=== PATIENT | male | born 1975 | race African-American/Black ===

== ENCOUNTER 2019-02-04 16:10 | Emergency (ER) | payer SELFPAY ==
[~2019-02-04] VITALS: Ht 185.4 cm; Wt 81.8 kg
[2019-02-04] MEDS ORDERED: CYCLOBENZAPRINE HCL 10 MG TABLET PO ONE (18:15)
[2019-02-04] MEDS ORDERED: KETOROLAC TROMETHAMINE 60 MG/2 ML VIAL IM ONE (18:15)
[2019-02-04] MEDS ORDERED: LIDOCAINE 5% TRANSDERMAL PATCH TD ONE (18:15)
[2019-02-04 19:14] VITALS: BP 110/77
== END 2019-02-04 19:27 | disposition home or self-care (01) ==
LOC: EMS 16:13
DX: M54.5 Low back pain (principal); M62.830 Muscle spasm of back
CPT/HCPCS: 96372; 99283; J1885